=== PATIENT | male | born 2000 | race Caucasian/White ===

== ENCOUNTER 2021-12-03 17:43 | Emergency (ER) | payer OTHER ==
[2021-12-03 18:10] VITALS: BP 120/60; PULSE 63; TEMP 98; BMI 27.3
[2021-12-03] MEDS ORDERED: KETOROLAC TROMETHAMINE 30 MG/1 ML VIAL IM ONE (18:51)
[2021-12-03] MEDS ORDERED: METHOCARBAMOL 500 MG TABLET PO ONE (18:52)
[2021-12-03] MEDS ORDERED: METHOCARBAMOL 500 MG TABLET ONE (19:25)
[2021-12-03] MEDS ORDERED: KETOROLAC TROMETHAMINE 30 MG/1 ML VIAL ONE (19:25)
[2021-12-03 20:00] LABS: PH,URINE 7.5 (5.0-8.0); URINE APPEARANCE CLEAR; URINE BILIRUBIN NEGATIVE (NEGATIVE); URINE COLOR YELLOW; URINE GLUCOSE (UA) NEGATIVE (NEGATIVE); URINE KETONE NEGATIVE (NEGATIVE); URINE LEUK ESTERASE NEGATIVE (NEGATIVE); URINE NITRITE NEGATIVE (NEGATIVE); URINE PROTEIN NEGATIVE (NEGATIVE); URINE UROBILINOGEN 0.2 mg/dL (0.2-1.0)
== END 2021-12-03 20:18 | disposition home or self-care (01) ==
LOC: JER 17:43 → JERFT 17:43
PROC: 3E0233Z Introduction of Anti-inflammatory into Muscle, Percutaneous Approach (ICD-10-PCS; principal; 2021-12-03)
DX: M54.6 Pain in thoracic spine (principal)
CPT/HCPCS: 36415; 71046-TC-FY; 81003; 87491; 87591; 99284-25

== ENCOUNTER 2024-01-17 07:36 | Emergency (ER) | payer OTHER ==
[2024-01-17 07:46] VITALS: RESP 19; TEMP 98.3; BMI 28.1
[2024-01-17] MEDS ORDERED: hydrOXYzine PAMOATE 50 MG CAPSULE (FP) ONE (08:43)
[2024-01-17] MEDS: hydrOXYzine PAMOATE 50 MG CAPSULE (FP) PO ONE (08:47)
[2024-01-17 09:23] VITALS: PULSE 110
[2024-01-17 09:31] VITALS: BP 138/87
== END 2024-01-17 09:35 | disposition home or self-care (01) ==
LOC: JER 07:36
DX: F12.920 Cannabis use, unspecified with intoxication, uncomplicated (principal); R00.0 Tachycardia, unspecified; F41.9 Anxiety disorder, unspecified
CPT/HCPCS: 93005; 93010; 99283-25